=== PATIENT | female | born 1940 | race Caucasian/White ===

== ENCOUNTER 2018-11-15 12:24 | Emergency (ER) | payer OTHER ==
[2018-11-15 13:17] LABS: Protime INR 1.02
[2018-11-15 13:25] LABS: Absolute Lymphocytes (CBC) 0.6 K/uL (0.7-4.9); Absolute Monocytes 0.6 K/uL (0.1-1.3); Absolute Neutrophil 6.9 K/uL (1.8-8.0); Basophils % 0.3 % (0-1.3); Hematocrit 43.7 % (36.0-45.0); Lymphocytes % 6.9 % (15.3-44.8); MPV 7.8 fL (7.6-11.3); Monocytes % 7.9 % (3.3-12.3); RBC Red Blood Cell Count 4.67 M/uL (3.86-4.86)
[2018-11-15 13:30] LABS: ALT/SGPT 47 U/L (12-78); AST/SGOT 39 U/L (15-37); Albumin 4.4 g/dL (3.4-5.0); Alkaline Phosphatase 65 U/L (45-117); BUN Blood Urea Nitrogen 19 mg/dL (7-18); Bicarbonate 19 mmol/L (21-32); Bilirubin Direct < 0.1 mg/dL (0-0.2); Bilirubin Total 0.2 mg/dL (0.2-1.0); Glucose Level 137 mg/dL (74-106); Magnesium 2.4 mg/dL (1.8-2.4); NT PRO-BNP 354 pg/mL (<450); Protein, Total 8.3 g/dL (6.4-8.2); Sodium Level 139 mmol/L (136-145); Troponin (Emerg Dept Use Only) < 0.02 ng/mL (0.0-0.045)
[2018-11-15] MEDS ORDERED: NA CHLORIDE 0.9% 1,000 ML ONE (13:46)
[2018-11-15] MEDS ORDERED: ONDANSETRON 4 MG/2 ML VIAL ONE (13:46)
--- NOTE | 2018-11-15 13:57 | RAD REPORT ---
EXAM DESCRIPTION: CT - Abdomen Pelvis W Contrast - 11/15/2018 1:44 pm CLINICAL HISTORY: Abdominal pain vomiting and diarrhea COMPARISON: none. TECHNIQUE: Computed axial tomography of the abdomen pelvis was obtained. 100 cc Isovue-300 was admin istered intravenously. Oral contrast was not requested which limits evaluation of bowel. All CT scans are performed using dose optimization technique as appropriate and may include automated exposure control or mA/KV adjustment according to patient size. FINDINGS: Mild fatty liver Spleen, pancreas, adrenal and kidneys appear unremarkable. There is no evidence of diverticulitis. The appendix is not clearly seen Fluid is present within nondilated large and small bowel Moderate to large hiatal hernia. Tiny left pleural effusion IMPRESSION: Fluid within nondilated large and small bowel may indicate an enteritis Moderate to large hiatal hernia
[2018-11-15] MEDS ORDERED: CEFTRIAXONE/SWI 1gm 1 GM/10 ML SYR ONE (14:26)
[2018-11-15] MEDS ORDERED: PROMETHAZINE 25 MG/ML VIAL ONE (14:26)
--- NOTE | 2018-11-15 14:27 | RAD REPORT ---
EXAM DESCRIPTION: [place] Single View11/15/2018 2:18 pm CLINICAL HISTORY: Chest pain COMPARISON: none FINDINGS: The lungs appear clear of acute infiltrate. The heart is normal size. A moderate to large hiatal hernia is seen. Tiny left pleural effusion
--- NOTE | 2018-11-15 15:34 | EKG ---
Test Date: 2018-11-15 Test Time: 12:56:58 Fieldwork Coordinator: DENIA MEASUREMENT RESULTS: Intervals: Rate: 89 CA: 150 QRSD: 82 QT: 368 QTc: 447 [place]: P: 57 CA: 150 QRS: 28 T: 51 INTERPRETIVE STATEMENTS: Normal sinus rhythm ST abnormality, possible digitalis effect Abnormal ECG No previous ECG available for comparison Electronically Signed On 11-15-18 15:32:56 TRANSFER OPERATOR by Reyes Waters
--- NOTE | 2018-11-15 16:14 | ER ---
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 Transition of care: patient was not received from another setting of care. Onset of symptoms was November 15, 2018. Risk Assessment: Do you want to hurt yourself or someone else? Patient reports no desire to harm self or others. Initial Sepsis Screen: Does the patient meet any 2 criteria? No. Patient's initial sepsis screen is negative. Does the patient have a suspected source of infection? No. Patient's initial sepsis screen is negative. Care prior to arrival: None. 12:46 Method Of Arrival: Wheelchair ph 12:46 Acuity: MAXIMO 3 ph Triage Assessment: 13:00 General: Appears distressed, comfortable, Behavior is calm, cooperative, appropriate bp for age. Pain: Complains of pain in chest and abdomen. GI: Reports diarrhea, nausea, vomiting. Historical: - Allergies: 12:49 No Known Allergies; ph - PMHx: 12:49 Dementia; Hypertension; Hyperlipidemia; ph - PSHx: 12:49 Hysterectomy; Bladder suspension; ph - Immunization history:: Adult Immunizations up to date. - Social history:: Patient/guardian denies using alcohol, street drugs, The patient lives with family, Smoking status: Patient/guardian denies using tobacco. - Family history:: not pertinent. - Ebola Screening: : Patient negative for fever greater than or equal to 101.5 degrees Fahrenheit, and additional compatible Ebola Virus Disease symptoms Patient denies exposure to infectious person Patient denies travel to an Ebola-affected area in the 21 days before illness onset No symptoms or risks identified at this time. Screenin:47 Abuse screen: Denies threats or abuse. Denies injuries from another. Nutritional bp screening: No deficits noted. Tuberculosis screening: No symptoms or risk factors identified. Fall Risk None identified. Assessment: 12:50 General: Appears distressed, uncomfortable, Behavior is cooperative, appropriate for bp age, anxious. General: SEE TRIAGE NOTE. Pain: Complains of pain in abdomen and chest. GI: Bowel sounds present X 4 quads. Abd is soft X 4 quads. GI: Reports cramping, diarrhea, nausea, vomiting. 14:30 Reassessment: ALL CURRENT ORDERS COMPLETED, RESULTS PENDING. bp 16:47 Reassessment: PT D/C HOME VIA W/C WITH FAMILY, DX WITH INFECTIOUS GASTRITIS AND COLITIS.bp Vital Signs: 12:47 BP 141 / 105; Pulse 95; Resp 22; Pulse Ox 99% on R/A; Weight 76.2 kg; Height 5 ft. 5 ph in. (165.10 cm); 14:30 BP 122 / 61; Pulse 92; Resp 16; Pulse Ox 95% ; bp 16:06 BP 143 / 63; Pulse 79; Resp 17; Temp 98.8(O); Pulse Ox 99% ; lt1 12:47 Body Mass Index 27.96 (76.20 kg, 165.10 cm) ph ED Course: 12:27 Patient arrived in ED. mr 12:27 out of town, doctor is Private Physician. mr 12:47 Triage completed. ph 12:48 Julio C Siddiqui MD is Attending Physician. ma2 12:49 Arm band placed on Patient placed in an exam room, on a stretcher, on cardiac sonographer, ph on pulse oximetry. 12:56 Suleman Donaldson, RN is Primary Nurse. bp 12:58 Inserted saline lock: 22 gauge in right forearm, using aseptic technique. Blood bp collected. 13:12 EKG done, by technical customer support specialist. reviewed by Julio C Siddiqui MD. sm3 13:43 CT completed. Patient tolerated procedure well. Patient moved to CT via stretcher. sj Patient moved back from CT. 13:46 CT Abd/Pelvis - W/Contrast: no po contrast plz In Process Unspecified. EDMS 14:18 XRAY Chest (1 view) In Process Unspecified. EDMS 14:19 X-ray completed. Portable x-ray completed in exam room. Patient tolerated procedure tm4 well. 16:47 Patient has correct armband on for positive identification. Placed in gown. Bed in low bp position. Call light in reach. Side rails up X2. Adult w/ patient. 16:47 No provider procedures requiring assistance completed. IV discontinued, intact, bp bleeding controlled, No redness/swelling at site. Pressure dressing applied. Administered Medications: 13:10 Drug: Zofran 4 mg Route: IVP; Site: right forearm; bp 14:23 Follow up: Response: No change in condition bp 14:23 Drug: NS 0.9% 1000 ml Route: IV; Rate: 1 bolus; Site: right forearm; hb 14:23 Drug: Rocephin 1 grams Route: IV; Rate: calculated rate; Site: right forearm; hb 14:23 Drug: Phenergan 25 mg Route: IVP; Site: right forearm; hb 16:13 Follow up: Response: Nausea is decreased bp Outcome: 16:13 Discharge ordered by MD. davis 16:47 Discharged to home via wheelchair, with family. bp 16:47 Condition: stable 16:47 Discharge instructions given to patient, family, Instructed on discharge instructions, follow up and referral plans. medication usage, Demonstrated understanding of instructions, follow-up care, medications, Prescriptions given X 3. 16:49 Patient left the ED. bp Signatures: Dispatcher [employer] EDMS Jeana Cr Shaheen, Joan Witt tm4 Mima Cerna RN RN Erin Jaramillo RN RN Suleman Malin RN RN Julio C Hernandez MD MD ma2 Montes, Shakira 3 Jerri Salazar lt1
--- NOTE | 2018-11-15 16:14 | EDPHYS ---
Physician Documentation [facility] Name: Kimberlyn Young Age: 77 yrs Sex: Female : 1940 Arrival Date: 11/15/2018 Time: 12:27 Bed 4 Private MD: out of town, doctor ED Physician Julio C Siddiqui HPI: 11/15 13:15 This 77 yrs old Female presents to ER via Wheelchair with complaints of ma2 Abdominal Pain, Vomiting/Diarrhea, Chest Pain. 13:15 The patient presents to the emergency department with nausea, vomiting, diarrhea. ma2 Onset: The symptoms/episode began/occurred gradually, 2 day(s) ago. Possible causes: unknown. Associated signs and symptoms: Pertinent negatives: anorexia, constipation, fever, GI bleeding. Severity of symptoms: At their worst the symptoms were moderate in the emergency department the symptoms are unchanged. The patient has experienced similar episodes in the past. Historical: - Allergies: 12:49 No Known Allergies; ph - PMHx: 12:49 Dementia; Hypertension; Hyperlipidemia; ph - PSHx: 12:49 Hysterectomy; Bladder suspension; ph - Immunization history:: Adult Immunizations up to date. - Social history:: Patient/guardian denies using alcohol, street drugs, The patient lives with family, Smoking status: Patient/guardian denies using tobacco. - Family history:: not pertinent. - Ebola Screening: : Patient negative for fever greater than or equal to 101.5 degrees Fahrenheit, and additional compatible Ebola Virus Disease symptoms Patient denies exposure to infectious person Patient denies travel to an Ebola-affected area in the 21 days before illness onset No symptoms or risks identified at this time. ROS: 13:15 Constitutional: Negative for fever, chills, and weight loss, Cardiovascular: Negative ma2 for chest pain, palpitations, and edema, Respiratory: Negative for shortness of breath, cough, wheezing, and pleuritic chest pain. 13:15 Abdomen/GI: Positive for nausea, vomiting, and diarrhea, Negative for abdominal pain, constipation, abdominal distension, dysphagia, rectal pain, bowel incontinence. 13:15 All other systems are negative. Exam: 13:15 Constitutional: This is a well developed, well nourished patient who is awake, alert, ma2 and in no acute distress. Chest/axilla: Normal chest wall appearance and motion. Nontender with no deformity. No lesions are appreciated. Cardiovascular: Regular rate and rhythm with a normal S1 and S2. No gallops, murmurs, or rubs. Normal PMI, no JVD. No pulse deficits. Respiratory: Lungs have equal breath sounds bilaterally, clear to auscultation and percussion. No rales, rhonchi or wheezes noted. No increased work of breathing, no retractions or nasal flaring. Abdomen/GI: Soft, non-tender, with normal bowel sounds. No distension or tympany. No guarding or rebound. No evidence of tenderness throughout. MS/ Extremity: Pulses equal, no cyanosis. Neurovascular intact. Full, normal range of motion. Neuro: Awake and alert, GCS 15, oriented to person, place, time, and situation. Cranial nerves II-XII grossly intact. Motor strength 5/5 in all extremities. Sensory grossly intact. Cerebellar exam normal. Normal gait. Vital Signs: 12:47 BP 141 / 105; Pulse 95; Resp 22; Pulse Ox 99% on R/A; Weight 76.2 kg; Height 5 ft. 5 ph in. (165.10 cm); 14:30 BP 122 / 61; Pulse 92; Resp 16; Pulse Ox 95% ; bp 16:06 BP 143 / 63; Pulse 79; Resp 17; Temp 98.8(O); Pulse Ox 99% ; lt1 12:47 Body Mass Index 27.96 (76.20 kg, 165.10 cm) ph MDM: 12:50 Patient medically screened. [facility] 13:15 Differential diagnosis: gastritis, diverticulitis, viral gastroenteritis, ma2 gastroenteritis. 16:12 Data reviewed: vital signs, nurses notes. Counseling: I had a detailed discussion with ma2 the patient and/or guardian regarding: the historical points, exam findings, and any diagnostic results supporting the discharge/admit diagnosis, the presence of at least one elevated blood pressure reading (>120/80) during this emergency department visit, radiology results, the need for outpatient follow up. Response to treatment: the patient's symptoms have resolved after treatment. 11/15 12:45 Order name: Basic Metabolic Panel; Complete Time: 13:33 ph 11/15 12:45 Order name: CBC with Diff; Complete Time: 14:05 ph 11/15 12:45 Order name: LFT's; Complete Time: 13:33 ph 11/15 12:45 Order name: Magnesium; Complete Time: 13:33 ph 11/15 12:45 Order name: NT PRO-BNP; Complete Time: 13:33 ph 11/15 12:45 Order name: PT-INR; Complete Time: 13:33 ph 11/15 12:45 Order name: Troponin (emerg Dept Use Only); Complete Time: 13:33 ph 11/15 12:45 Order name: XRAY Chest (1 view); Complete Time: 14:33 ph 11/15 13:02 Order name: Lipase ma2 11/15 13:02 Order name: CT Abd/Pelvis - W/Contrast: no po contrast plz ; Complete Time: 14:05 [facility] 11/15 14:34 Order name: Troponin (emerg Dept Use Only): 3 hrs repeat please; Complete Time: 16:03 [facility] 11/15 12:45 Order name: EKG; Complete Time: 12:48 ph 11/15 12:45 Order name: Cardiac monitoring; Complete Time: 12:57 ph 11/15 12:45 Order name: EKG - Nurse/Tech; Complete Time: 13:25 ph 11/15 12:45 Order name: IV Saline Lock; Complete Time: 12:57 ph 11/15 12:45 Order name: Labs collected and sent; Complete Time: 12:57 ph 11/15 12:45 Order name: O2 Per Protocol; Complete Time: 12:57 ph 11/15 12:45 Order name: O2 Sat Monitoring; Complete Time: 12:57 ph Administered Medications: 13:10 Drug: Zofran 4 mg Route: IVP; Site: right forearm; bp 14:23 Follow up: Response: No change in condition bp 14:23 Drug: NS 0.9% 1000 ml Route: IV; Rate: 1 bolus; Site: right forearm; hb 14:23 Drug: Rocephin 1 grams Route: IV; Rate: calculated rate; Site: right forearm; hb 14:23 Drug: Phenergan 25 mg Route: IVP; Site: right forearm; hb 16:13 Follow up: Response: Nausea is decreased bp Disposition: 11/15/18 16:13 Discharged to Home. Impression: Infectious gastroenteritis and colitis, unspecified. - Condition is Stable. - Discharge Instructions: Food Choices to Help Relieve Diarrhea, Adult, Diarrhea, Adult, [id number]. - Prescriptions for Zofran 4 mg Oral Tablet - take 1 tablet by ORAL route every 12 hours As needed; 20 tablet. Pepcid 20 mg Oral Tablet - take 1 tablet by ORAL route once daily for 10 days; 10 tablet. Cipro 500 mg Oral Tablet - take 1 tablet by ORAL route 2 times per day for 4 days; 8 tablet. - Medication Reconciliation Form, Thank You Letter, Antibiotic Education, Prescription Opioid Use form. - Follow up: Private Physician; When: Tomorrow; Reason: Continuance of care. Signatures: Dispatcher [employer] EDWA Mima Cerna RN RN Erin Jaramillo RN RN Suleman Donaldson RN RN bp Julio C Siddiqui MD MD ma2 Corrections: (The following items were deleted from the chart) 16:49 16:13 11/15/2018 16:13 Discharged to Home. Impression: Infectious gastroenteritis and bp colitis, unspecified. Condition is Stable. Forms are Medication Reconciliation Form, Thank You Letter, Antibiotic Education, Prescription Opioid Use. Follow up: Private Physician; When: Tomorrow; Reason: Continuance of care. ma2
== END 2018-11-15 16:49 | disposition home or self-care (01) ==
LOC: ER 12:24
DX: A09 Infectious gastroenteritis and colitis, unspecified (principal); I10 Essential (primary) hypertension
CPT/HCPCS: 36415; 71045; 74177; 80048; 80076; 83690; 83735; 83880; 84484 ×2; 85025; 85610; 93005; 96374; 96375; 99284; J0696; J2405; J2550; J7030; Q9967